=== PATIENT | male | born 1990 | race Caucasian/White ===

== ENCOUNTER 2018-12-02 11:02 | Outpatient (CLI) | payer BC ==
[~2018-12-02 11:02] MED LIST: ALBU6.7H9 INH
[2018-12-02 11:46] LABS: D-DIMER 0.24 MG/L FEU (0-0.50)
== END 2018-12-02 23:59 | disposition home or self-care (01) ==
LOC: LAB 11:02
PROVIDERS: ATTEND Internal Medicine
DX: R09.1 Pleurisy (principal); J45.909 Unspecified asthma, uncomplicated
CPT/HCPCS: 36415; 85379